=== PATIENT | male | born 1950 | race Two or more races ===

== ENCOUNTER 2025-02-06 09:06 | Emergency (ER) | payer OTHER ==
[~2025-02-06] VITALS: Ht 175.3 cm; Wt 72.6 kg
[2025-02-06] MEDS ORDERED: ACETAMINOPHEN 500 MG GEL..CAP PO ONE ×2 (10:12→10:15)
[2025-02-06] MEDS ORDERED: CEFTRIAXONE SODIUM 1,000 MG VIAL ONE (10:12)
[2025-02-06] MEDS ORDERED: CEFTRIAXONE SODIUM 1,000 MG VIAL IM ONE (10:15)
[2025-02-06] MEDS ORDERED: POVIDONE-IODINE 118 ML BOTT TOP ONE (10:15)
[2025-02-06] MEDS ORDERED: 8 HOUR650 MG PO (12:14)
== END 2025-02-06 13:25 | disposition home or self-care (01) ==
LOC: ER 09:06
DX: S49.81XA Other specified injuries of right shoulder and upper arm, initial encounter (principal); W19.XXXA Unspecified fall, initial encounter; Y93.89 Activity, other specified; Y92.89 Other specified places as the place of occurrence of the external cause; Y99.8 Other external cause status; M25.519 Pain in unspecified shoulder; M79.601 Pain in right arm; M25.561 Pain in right knee
CPT/HCPCS: 71111; 73030; 73060; 73070; 73090; 73100; 73130; 73560; 96372; 99283; J0696